=== PATIENT | female | born 1985 | race Caucasian/White ===

== ENCOUNTER → 2020-02-27 | Outpatient (CLI) | payer OTHER, BC ==
[~2020-02-27] MED LIST: IBUPROFEN 800800 M1; PRENATAL; VICODIN 5-5001 EACH
== END ==
LOC: RAD 11:41
PROVIDERS: ATTEND Nurse Practitioner Family
DX: M46.1 Sacroiliitis, not elsewhere classified (principal); Z68.36 Body mass index [BMI] 36.0-36.9, adult